=== PATIENT | male | born 1950 | race African-American/Black ===

== ENCOUNTER 2016-09-06 10:41 | Observation (INO) | payer OTHER ==
--- NOTE | ~2016-09-06 | DS ---
Unit #: [id number] #: [id number] Patient: DOMINGA GREEN [id number] [address] [address] [id number] I MR#: [id number] NAME: DOMINGA GREEN ROOM: [facility] Age: 66 Sex: M Admission Date: 09/06/2016 : 1950 Discharge Date: 09/07/2016 Attending Physician: Tristan Fox M.D. Referring Physician: Tristan Fox M.D. Primary Care Physician: Generic Doctor Not In System DISCHARGE SUMMARY DISCHARGE DIAGNOSES 1. Unstable angina. 2. Status post cardiac catheterization 09/06/[address] Fox at [facility] that revealed the following results: a. Left main normal. b. Left anterior descending artery with diagonal branches and septal perforators all normal. c. Circumflex artery dominant vessel with first marginal branch with presence of stent with 99% in-stent stenosis near its origin. Second and third marginal branches normal. d. Right coronary artery normal. e. Ramus intermedius branch normal. f. Ejection fraction of 55% with no segmental wall hypokinesis. 3. Status post percutaneous coronary intervention with drug-eluting stent to the first marginal branch of the circumflex 09/06/2016. 4. Previous percutaneous coronary intervention with drug-eluting stent to the marginal branch of the circumflex artery 01/19/2015. 5. Hypertension. 6. Hyperlipidemia. 7. Paroxysmal atrial fibrillation, in normal sinus rhythm, on anticoagulation with Pradaxa. 8. Former smoker. 9. Ethanol use. DISCHARGE MEDICATIONS 1. Acetaminophen 500 mg daily as needed. 2. Pradaxa 150 mg b.i.d. 3. Nicotine patch 1 patch daily. 4. Metoprolol tartrate 25 mg b.i.d. 5. Chlorthalidone 25 mg daily. 6. Lipitor 40 mg q.h.s. 7. Cozaar 25 mg daily. 8. Centrum Silver 1 tablet daily. 9. Aspirin 81 mg daily. 10. Vitamin B complex 150 mg daily. 11. Plavix 75 mg daily. HOSPITAL COURSE This is a 66-year-old male who is known to Dr. Cueto who had a previous stent insertion on two occasions to the circumflex marginal branch. For the past 2 weeks he had recurrent chest pain that was nonradiating to the neck, arm or jaw, associated with shortness of breath. His symptoms were suggestive of recurrent coronary artery disease. He was scheduled for Unit #: [id number] #: [id number] Patient: DOMINGA GREEN elective cardiac catheterization, for which he presented. Cardiac catheterization findings showed 99% in-stent stenosis near the origin of a marginal branch. There was [place] 2 to 3 flow noted. The remaining coronary arteries were normal. He had normal left ventricular systolic function where his ejection fraction was 55%. It was felt the patient could be treated with stent placement. After multiple attempts to advance a 3.0 Synergy stent across the lesion were unsuccessful, the procedure was changed to a right femoral approach. Using a Lumiy system with two "BHW" wires, the in-stent stenosis was predilated to 2.5 mm. Insertion of a 3 x 16 mm long Synergy drug-eluting stent was advanced into the proximal third of the stent. It was post dilated up to 20 atmospheres, achieving the final diameter of 3.39 mm. The stenosis was reduced to 0%. The patient was maintained on dual antiplatelet therapy with aspirin and Plavix. Losartan was added for better blood pressure control. His blood pressure was elevated to 159/99 mmHg during his stay. His blood pressure improved. He has also been maintained on Pradaxa because of paroxysmal atrial fibrillation. Today, his blood pressure is better. His heart rate is stable where he remains in normal sinus rhythm. He has had no recurrence of chest pain. Right radial and right groin are healing well without hematoma or bruising. He is stable for discharge today. ASSESSMENT VITAL SIGNS: Blood pressure 130/76, heart rate 70. CHEST: Clear to auscultation. NECK: With no jugular venous distention. HEART: S1, S2 with regular rate and rhythm. ABDOMEN: Soft, nontender with bowel sounds present. EXTREMITIES: Without leg edema. SKIN: Right radial and right groin without hematoma or bruising. DIAGNOSTIC STUDIES LABORATORY STUDIES: White count 7.5, hemoglobin 13.6, hematocrit 40.5, platelet count 227. Glucose 118, BUN 17, creatinine 0.9, sodium 137, potassium 3.9. CK-MB 2.1, MB index 1.3, CK total 163. Cholesterol 152, triglycerides 85, LDL 107, HDL 28. CARDIOVASCULAR STUDIES: Electrocardiogram - Normal sinus rhythm with a rate of 64 beats per minute with questionable old inferior infarct with Q waves in III and AVF. DISCHARGE INSTRUCTIONS 1. The patient will be discharged home today. 2. Follow up with Dr. Cueto on Sunday, December 04, at 12:45 p.m. 3. The patient may return to work on September 12 without restrictions. A written note has been provided for the patient. 4. The patient is to continue on dual antiplatelet therapy with aspirin and Plavix. He is also to continue on Pradaxa for stroke prevention for atrial fibrillation. 5. Losartan has been added to his daily regimen for blood pressure control. Prescription has been written. 6. The patient has been seen by cardiac rehab during his stay and is concerned about the location of rehab. Will encourage him to attend rehab at this facility. Unit #: [id number] #: [id number] Patient: DOMINGA GREEN 1. Dictated by... Agnieszka MathisP.RJongNJong for Callie Bailey/negrita TD: 09/08/2016 09:15 JOB #: [id number] DISCHARGE SUMMARY Page 1 of 1 X Shahid Haskins APRN X DISCHARGE SUMMARY
--- NOTE | ~2016-09-06 | EKG ---
PATIENT: DOMINGA GREEN UNIT #: [id number] Ventricular Rate: 92 BPM Atrial Rate: 416 BPM QRS Duration: 88 ms Q-T Interval: 366 ms QTC Calculation(Bezet): 452 ms Calculated R [place]: 2 degrees Calculated T [place]: 60 degrees Diagnosis Line: Atrial fibrillation Diagnosis Line: Abnormal ECG Diagnosis Line: When compared with ECG of 06-SEP-2016 11:38, Diagnosis Line: (unconfirmed) Diagnosis Line: Non-specific change in ST segment in Inferior Diagnosis Line: leads Diagnosis Line: Confirmed by ELENA CARLIN MD ([id number]) on 09/06/2016 Diagnosis Line: 10:47:03 PM INTERPRETING MD: RAEGAN GARCIA
--- NOTE | ~2016-09-06 | EKG ---
PATIENT: DOMINGA GREEN UNIT #: [id number] Ventricular Rate: 61 BPM Atrial Rate: 61 BPM P-R Interval: 152 ms QRS Duration: 90 ms Q-T Interval: 460 ms QTC Calculation(Bezet): 463 ms P [place]: 36 degrees Calculated R [place]: 4 degrees Calculated T [place]: 48 degrees Diagnosis Line: Normal sinus rhythm Diagnosis Line: Possible Left atrial enlargement Diagnosis Line: Inferior infarct , age undetermined Diagnosis Line: Abnormal ECG Diagnosis Line: When compared with ECG of 06-SEP-2016 15:09, Diagnosis Line: Sinus rhythm has replaced Atrial fibrillation Diagnosis Line: Vent. rate has decreased BY 31 BPM Diagnosis Line: Confirmed by TENNILLE BURTON MD ([id number]) on Diagnosis Line: 09/08/2016 11:00:08 PM INTERPRETING MD: KELY
--- NOTE | ~2016-09-06 | EKG ---
PATIENT: DOMINGA GREEN UNIT #: [id number] Ventricular Rate: 91 BPM Atrial Rate: 394 BPM QRS Duration: 90 ms Q-T Interval: 364 ms QTC Calculation(Bezet): 447 ms Calculated R [place]: -10 degrees Calculated T [place]: 43 degrees Diagnosis Line: Atrial fibrillation Diagnosis Line: Inferior infarct , age undetermined Diagnosis Line: Abnormal ECG Diagnosis Line: When compared with ECG of 20-JAN-2015 06:40, Diagnosis Line: Atrial fibrillation has replaced Sinus rhythm Diagnosis Line: Vent. rate has increased BY 40 BPM Diagnosis Line: Inferior infarct is now Present Diagnosis Line: Nonspecific T wave abnormality, improved in Diagnosis Line: Lateral leads Diagnosis Line: Confirmed by ELENA CARLIN MD ([id number]) on 09/06/2016 Diagnosis Line: 10:44:46 PM INTERPRETING MD: RAEGAN GARCIA
[~2016-09-06 10:41] MED LIST: ASPIRIN81 MG PO; CENTRUM PO; CHLORTHALIDONE25 MG PO; LIPITOR PO; METOPROLOL TAR25 MG; NICOTINE PATCH1 EAC1; NITROGLYCERIN0.4 MG SL; NON-ASPIRIN PA500 M1 PO; PLAVIX PO; PRADAXA75 MG PO; SOTALOL AF80 MG PO; SUPER B COMPLE150 MG PO; ZESTRIL40 MG PO
[2016-09-06 11:18] LABS: HEMATOCRIT 45.3 % (38.0-50.0); HEMOGLOBIN 15.7 gm/dL (13.0-16.0); MEAN CELL VOLUME 99.3 FL (83-96); MEAN CORPUSCULAR HEMOGLOBIN 34.3 PG (28-34); MEAN CORPUSCULAR HGB CONC 34.6 g/dL (30-36); MEAN PLATELET VOLUME 7.5 FL (6.5-11.5); RED BLOOD COUNT 4.56 X10e (3.90-5.60); WHITE BLOOD COUNT 8.1 X10e3 (4.0-10.5)
[2016-09-06 11:37] LABS: PARTIAL THROMBOPLASTIN TIME 28.5 SECONDS (23.5-31.3); PROTHROMBIN TIME (PATIENT) 10.6 SECONDS (9.6-11.5)
[2016-09-06 11:48] LABS: CALCIUM SERUM 9.1 mg/dL (8.4-10.2); GLOM FILT RATE Estimated 91.8 mL/min (>60); POTASSIUM 3.8 mmol/L (3.5-5.1)
[2016-09-06 23:09] LABS: ANGIO %MB 1.1 % (0.0-4.0); ANGIO MB 2.3 ng/ml
[2016-09-07 06:59] LABS: HEMATOCRIT 40.5 % (38.0-50.0); MEAN CELL VOLUME 100.9 FL (83-96); MEAN CORPUSCULAR HEMOGLOBIN 33.9 PG (28-34); MEAN CORPUSCULAR HGB CONC 33.6 g/dL (30-36); MEAN PLATELET VOLUME 7.5 FL (6.5-11.5); RED BLOOD COUNT 4.02 X10e (3.90-5.60); WHITE BLOOD COUNT 7.5 X10e3 (4.0-10.5)
[2016-09-07 07:00] LABS: HEMOGLOBIN 13.6 gm/dL (13.0-16.0)
[2016-09-07 07:51] LABS: ANGIO %MB 1.3 % (0.0-4.0); ANGIO MB 2.1 ng/ml
[2016-09-07 08:10] LABS: BUN/CREATININE RATIO 18.88; CALCIUM SERUM 8.7 mg/dL (8.4-10.2); CREATININE SERUM 0.9 mg/dL (0.6-1.4); GLOM FILT RATE Estimated 104.2 mL/min (>60); POTASSIUM 3.9 mmol/L (3.5-5.1)
[2016-09-07] MEDS ORDERED: CLOPIDOGREL75 MG PO (10:56)
[2016-09-07] MEDS ORDERED: LOSARTAN POTASS25 MG PO (10:57)
== END 2016-09-07 12:24 | disposition home or self-care (01) | DRG 315 ==
LOC: CCVL 10:41 → CEDOF 15:50 → C5B 18:11
PROVIDERS: Internal Medicine Cardiovascular Disease
DX: T82.855A Stenosis of coronary artery stent, initial encounter (principal); I25.110 Atherosclerotic heart disease of native coronary artery with unstable angina pectoris; I48.0 Paroxysmal atrial fibrillation; I11.9 Hypertensive heart disease without heart failure; E78.00 Pure hypercholesterolemia, unspecified; Z79.01 Long term (current) use of anticoagulants; Z79.02 Long term (current) use of antithrombotics/antiplatelets; Z79.82 Long term (current) use of aspirin; F10.10 Alcohol abuse, uncomplicated; Z87.891 Personal history of nicotine dependence; J44.9 Chronic obstructive pulmonary disease, unspecified; G47.33 Obstructive sleep apnea (adult) (pediatric); Z82.49 Family history of ischemic heart disease and other diseases of the circulatory system; K21.9 Gastro-esophageal reflux disease without esophagitis
CPT/HCPCS: 93458; C9600; 36415; 80048; 80061; 82550; 82553; 85027; 85347; 85610; 85730; 93005; 96374; 96375; C1725; C1769; C1874; C1887; C1894; G0378; J0461; J1644; J2250; J2270; J2405; J3010